=== PATIENT | female | born 1995 | race Caucasian/White ===

== ENCOUNTER → 2019-04-07 09:57 | Outpatient (CLI) | payer SELFPAY ==
[2019-04-07 08:54] VITALS: BMI 31.8
[2019-04-07 10:17] LABS: Absolute Lymphocyte Count 1.24 X10^3/uL (0.83-4.51); Absolute Neutrophil Count 4.7 X10^3/uL (2.0-7.7); Basophil# 0.02 X10^3/uL; Basophil% 0.3 % (0-1); Eosinophil# 0.03 X10^3/uL; Eosinophils% 0.5 % (0-5); Hematocrit 40.5 % (37-47); Hemoglobin 14.1 g/dL (12.0-15.0); Lymphocyte # 1.24 X10^3/ul (4.0); Lymphocyte % 19.3 % (19-41); Mean Corp Hgb Conc 34.8 g/dL (32-36); Mean Corpuscular Hgb 33.5 pg (27.0-32.0); Mean Corpuscular Volume 96.2 fL (81-99); Mean Platelet Vol. 9.7 fl (6.2-12.0); Monocyte% 6.2 % (0-10); NRBC Flagged by Analyzer 0 % (0-5); Neutrophil # 4.72 X10^3/uL (2.7-7.7); Neutrophil % 73.4 % (47-70); Platelet Count 196 K/mm3 (150-450); RBC Distribution Width CV 12.4 % (11.6-14.6); RBC Distribution Width SD 43.3 fl (35.1-43.9); Red Blood Count 4.21 M/mm3 (4.2-5.4); White Blood Count 6.4 K/mm3 (4.4-11.0)
[2019-04-07 11:39] LABS: HIV - WCH Non-Reactive (Nonreactive); Hepatitis B Surface Antibody Non-Reactive; Hepatitis B Surface Antigen Non-Reactive (Nonreactive); Rubella IgG 36.3 IU/mL
[2019-04-07 15:45] LABS: Chlamydia Trachomatis by PCR Negative (Negative); Neisserai gonorrhoeae by PCR Negative (Negative); Probe Check PASS; Sample Adequacy Control PASS; Specimen Processing Control PASS
[2019-04-11 04:45] LABS: Rapid Plasmin Reagin (RPR) NONREACTIVE (NONREACTIVE)
== END ==
PROVIDERS: PCP Physician Assistant; Referring Provider Obstetrics & Gynecology; Visit Provider Obstetrics & Gynecology
DX: Z34.90 Encounter for supervision of normal pregnancy, unspecified, unspecified trimester (principal)
CPT/HCPCS: 36415; 85025; 86592; 86703; 86706; 86762; 86850; 86900; 87086; 87088; 87340; 87491; 87591

== ENCOUNTER → 2019-08-21 11:13 | Outpatient (CLI) | payer SELFPAY ==
[2019-08-21 10:24] VITALS: BMI 27.6
[2019-08-21 12:42] LABS: Absolute Lymphocyte Count 1.06 X10^3/uL (0.83-4.51); Absolute Neutrophil Count 6.3 X10^3/uL (2.0-7.7); Basophil# 0.02 X10^3/uL; Basophil% 0.3 % (0-1); Eosinophil# 0.06 X10^3/uL; Eosinophils% 0.8 % (0-5); Hematocrit 39.9 % (37-47); Hemoglobin 13.4 g/dL (12.0-15.0); Lymphocyte # 1.06 X10^3/ul (4.0); Lymphocyte % 13.5 % (19-41); Mean Corp Hgb Conc 33.6 g/dL (32-36); Mean Corpuscular Hgb 33.8 pg (27.0-32.0); Mean Corpuscular Volume 100.5 fL (81-99); Mean Platelet Vol. 10.1 fl (6.2-12.0); Monocyte# 0.35 X10^3/uL; Monocyte% 4.5 % (0-10); NRBC Flagged by Analyzer 0 % (0-5); Neutrophil # 6.32 X10^3/uL (2.7-7.7); Neutrophil % 80.4 % (47-70); Platelet Count 220 K/mm3 (150-450); RBC Distribution Width CV 12.7 % (11.6-14.6); RBC Distribution Width SD 46.9 fl (35.1-43.9); Red Blood Count 3.97 M/mm3 (4.2-5.4); White Blood Count 7.9 K/mm3 (4.4-11.0)
[2019-08-21 13:22] LABS: Glucose Challenge Gest 1H 50g 88 mg/dL (70-140)
== END ==
PROVIDERS: Family Provider Physician Assistant; PCP Physician Assistant; Referring Provider Obstetrics & Gynecology; Visit Provider Obstetrics & Gynecology
DX: O26.891 Other specified pregnancy related conditions, first trimester (principal); Z3A.00 Weeks of gestation of pregnancy not specified
CPT/HCPCS: 36415; 82950; 85025; 86850; 86900; 86901

== ENCOUNTER → 2019-10-24 | Outpatient (CLI) | payer SELFPAY ==
[2019-10-24 10:07] VITALS: BMI 31.8
== END | disposition home or self-care (01) ==
LOC: LABSPEC 11:57
PROVIDERS: PCP Physician Assistant; Referring Provider Obstetrics & Gynecology; Visit Provider Obstetrics & Gynecology
DX: Z34.93 Encounter for supervision of normal pregnancy, unspecified, third trimester (principal)
CPT/HCPCS: 87077; 87081; 87186

== ENCOUNTER 2019-10-27 17:40 | Inpatient (IN) | payer SELFPAY ==
[2019-10-27 15:25] VITALS: BMI 31.8
[2019-10-27 15:57] VITALS: BMI 32.4
[2019-10-27 17:24] VITALS: BMI 32.4
[2019-10-27] MEDS: Lactated Ringers 1,000 ML 500 ML IV (17:50)
[2019-10-27 17:58] LABS: Absolute Lymphocyte Count 1.22 X10^3/uL (0.83-4.51); Basophil# 0.01 X10^3/uL; Basophil% 0.1 % (0-1); Eosinophil# 0.06 X10^3/uL; Eosinophils% 0.6 % (0-5); Hematocrit 40.4 % (37-47); Hemoglobin 13.9 g/dL (12.0-15.0); Lymphocyte # 1.22 X10^3/ul (4.0); Lymphocyte % 12.3 % (19-41); Mean Corp Hgb Conc 34.4 g/dL (32-36); Mean Corpuscular Hgb 33.9 pg (27.0-32.0); Mean Corpuscular Volume 98.5 fL (81-99); Mean Platelet Vol. 10.1 fl (6.2-12.0); Monocyte# 0.55 X10^3/uL; Monocyte% 5.6 % (0-10); NRBC Flagged by Analyzer 0 % (0-5); Neutrophil % 80.9 % (47-70); Platelet Count 205 K/mm3 (150-450); RBC Distribution Width SD 46.5 fl (35.1-43.9); White Blood Count 9.9 K/mm3 (4.4-11.0)
[2019-10-27] MEDS: fentaNYL-bupivacaine (epidural) 100 ML BAG EPIDURAL (20:25)
[2019-10-27] MEDS: Lactated Ringers 1,000 ML 200 ML IV (20:55)
[2019-10-27] MEDS: Acetaminophen 325 MG Tablet PO (20:57)
[2019-10-28] VITALS (8 sets, daily range): BP systolic 112–155; BP diastolic 61–74; PULSE 78–99; RESP 14–18; TEMP 36.2–36.7; O2SAT 98–99
[2019-10-28] MEDS: Oxytocin 30 units/NS 500 ml 30 UNITS/500 ML IV.SOLN 334 UNITS IV (00:14)
--- NOTE | 2019-10-28 00:43 | HP.PCM_ITS ---
- Problem List (1) Active labor at term Status: Acute (2) Rh negative status during Status: Acute Qualifiers: Comment: rhogam given at 28weeks (3) History of prior with short cervix, currently Status: Acute Comment: No intervention. No PTL. s/p mfm consult early and nl cervical lengths (4) Status: Acute Qualifiers: Comment: carrier, ntd, and genetic screening declined; normal anatomy (5) Supervision of other normal , antepartum Status: Acute Comment: PRR OCTAVIO 11/13/19 boy PC:[place] Spouse:Neymar History Date of Admission: 05/16/17 Final OCTAVIO: 11/13/19 Final OCTAVIO Source: US <20 weeks Gestational age: 37 Weeks and 5 Days History of this : This is a 24 year-old, at 37 weeks gestational age in active labor 5 cm dilated. Patient denies any vaginal bleeding or loss of fluid admits good movement. Patient had a complicated by cervical insufficiency but is made it to term spontaneously. Surgical History: Surgical History (Last Reviewed 10/27/19 @ 15:04 by Debra Nesbitt) History of wisdom tooth extraction, class II edentulism K08.492 Allergies No Known Allergies Allergy (Verified 10/27/19 15:05) Home Medications: Home Medications Vits [Prenatabs FA ] 1 tab PO DAILY 05/16/17 Smoking Status: Never smoker Alcohol: None Number of Fetus(es): 1 NST - FHR Rate Baby A Baseline: 130 Variability:: Moderate Accelerations:: 15 x 15 Decelerations:: None NST Reactive:: Yes FHR Category:: Category I Uterine Activity:: q 2 History Past Pregnancies: Past Pregnancies Pregancy History 2 Elective abortions Hx Para 1 Spontaneous abortions Hx # Term Pregnancies Ectopic pregnancies Hx # Pregnancies Multiple births # of living children Past Pregnancies Del. Date Name GA/Weeks Outcome Route Bth Weight Gen Labor Lgth Anesthesia Del Locatn Provider FOB Unknown 2016 [place] 38 live - full term 7lbs 1oz Male 9 hours epidural WC Felix Labs: Mom's Labs & Results 10/27/19 10/27/19 10/27/19 17:50 17:50 17:50 WBC 9.9 Corrected WBC ASSISTANT GENERAL MANAGER RBC 4.10 L Hgb 13.9 Hct 40.4 MCV 98.5 MCH 33.9 H MCHC 34.4 RDW Std Deviation 46.5 H RDW Coeff of Lidia 13.0 Plt Count 205 MPV 10.1 Immature Gran % (Auto) 0.500 Neut % (Auto) 80.9 H Lymph % (Auto) 12.3 L [place] % (Auto) 5.6 Eos % (Auto) 0.6 Baso % (Auto) 0.1 Absolute Neuts (auto) 8.0 H Absolute Lymphs (auto) 1.22 Total Counted ASSISTANT GENERAL MANAGER Neutrophils % (Manual) ASSISTANT GENERAL MANAGER Band Neutrophils % ASSISTANT GENERAL MANAGER Lymphocytes % (Manual) ASSISTANT GENERAL MANAGER Monocytes % (Manual) ASSISTANT GENERAL MANAGER Eosinophils % (Manual) ASSISTANT GENERAL MANAGER Basophils % (Manual) ASSISTANT GENERAL MANAGER Metamyelocytes % ASSISTANT GENERAL MANAGER Myelocytes % ASSISTANT GENERAL MANAGER Promyelocytes % ASSISTANT GENERAL MANAGER Blast Cells % ASSISTANT GENERAL MANAGER Plasma Cell % (Manual) ASSISTANT GENERAL MANAGER Other Cells % ASSISTANT GENERAL MANAGER Nucleated RBC % 0 Nucleated RBCs/100 WBC ASSISTANT GENERAL MANAGER Differential Comment ASSISTANT GENERAL MANAGER Diff Path Review ASSISTANT GENERAL MANAGER Hypersegmented Neuts ASSISTANT GENERAL MANAGER Atypical Lymphocytes ASSISTANT GENERAL MANAGER Reactive Lymphocytes ASSISTANT GENERAL MANAGER Smudge Cells ASSISTANT GENERAL MANAGER Toxic Granulation ASSISTANT GENERAL MANAGER Toxic Vacuolation ASSISTANT GENERAL MANAGER Dohle Bodies ASSISTANT GENERAL MANAGER Gera Rods ASSISTANT GENERAL MANAGER Platelet Estimate ASSISTANT GENERAL MANAGER Plt Morphology Comment ASSISTANT GENERAL MANAGER RBC Morphology ASSISTANT GENERAL MANAGER Polychromasia ASSISTANT GENERAL MANAGER Hypochromasia ASSISTANT GENERAL MANAGER Poikilocytosis ASSISTANT GENERAL MANAGER Basophilic Stippling ASSISTANT GENERAL MANAGER Anisocytosis ASSISTANT GENERAL MANAGER Microcytosis ASSISTANT GENERAL MANAGER Macrocytosis ASSISTANT GENERAL MANAGER Spherocytes ASSISTANT GENERAL MANAGER Sickle Cells ASSISTANT GENERAL MANAGER Target Cells ASSISTANT GENERAL MANAGER Tear Drop Cells ASSISTANT GENERAL MANAGER Ovalocytes ASSISTANT GENERAL MANAGER Stomatocytes ASSISTANT GENERAL MANAGER [place] Bodies ASSISTANT GENERAL MANAGER [place] Cells ASSISTANT GENERAL MANAGER Bite Cells ASSISTANT GENERAL MANAGER Crenated Cell ASSISTANT GENERAL MANAGER Acanthocytes (Spur) ASSISTANT GENERAL MANAGER Rouleaux ASSISTANT GENERAL MANAGER Schistocytes ASSISTANT GENERAL MANAGER Blood Type A NEGATIVE Antibody Screen TNP NEGATIVE Course Did the patient receive Yes care? Labs Blood Type: A RH: NEGATIVE RPR/VDRL/Syphilis Nonreactive Rubella status Immune HbSAg Negative Date Done: 04/07/19 Chlamydia Negative Gonorrhea Negative HIV/AIDS Non-Reactive Group B Strep: Negative Current Obstetrical History Gestational Diabetes No Incompetent Cervix No Infertility No IUGR No Macrosomia No Hypertension/Pre-eclampsia No Placenta Previa/Abruption No PTL/PROM No Uterine anomaly No Oligohydramnios No Polyhydramnios No Multiple gestation No Past Medical History Asthma No Diabetes No Hypertension No Heart disease No Mitral valve prolapse No Neurologic/Seizure disorder/ No Migraines Kidney disease No Liver disease No Varicosities No Clotting disorders/Hx of DVT No Thyroid Dysfunction No Other medical diseases No Psychiatric disorders No Major trauma No Abnormal PAP smear No Sleep apnea No Mammogram in the last 2 years No Social History Marital Status: Alleged father Neymar Hyde Hx Smoking No Smoking Status Never smoker How long have you used no substances (years)? Expected Infant Delivery Method: Spontaneous Vaginal Review of Systems Constitutional: Denies: Fever, Malaise Eyes: Denies: Blurred vision, Vision Change HEENT: Denies: Head Aches, Visual Changes Cardiovascular: Denies: Chest Pain, Palpitations Respiratory: Denies: Cough, Shortness of Breath, Wheezing Gastrointestinal: Denies: Abdominal Pain, Diarrhea, Nausea, Vomiting Genitourinary: Denies: Dysuria, Hematuria Musculoskeletal: Denies: Joint Pain, Muscle pain Skin: Denies: Lesions, Rash Neurological: Denies: Blurred vision, Focal weakness, Headaches Psychiatric: Denies: Anxiety, Depression Endocrine: Denies: Heat/ Cold Intolerance Hematologic/ Lymphatic: Denies: Easy Bruising, Easy Bleeding Physical Exam General: Alert, Cooperative, No apparent distress HEENT: Atraumatic, Normocephalic. Negative for: Thyromegaly, Lymphadenopathy Cardiovascular: Regular rate Lungs: Normal air movement Abdomen: Soft, Non Tender, Gravid Neurological: Deep Tendon Reflexes 2+/4 and Symmetrical, Neuro grossly intact. Negative for: Clonus CENTER RECEPTIONIST: Normal external genitalia. Negative for: Vulvar lesions Estimated gestational size: Appropriate for gestational size Presentation: Cephalic Cervix Dilation (cm): 5 Station: 0 Effacement (%): 80 Assessment/Plan All Active Problems (Last Reviewed 10/27/19 @ 15:04 by Debra Nesbitt) Active labor at term (Acute) Rh negative status during (Acute) History of prior with short cervix, currently (Acute) (Acute) Supervision of other normal , antepartum (Acute) This is a 24 year-old, at 37 weeks gestational age presents IAL Patient presents IAL, plan expectant management for , Pitocin/AROM if needed. Pain management: Plans epidural. GBS negative. Management of any complications: None I have reviewed the [facility] and made any clinically relevant updates.
--- NOTE | 2019-10-28 00:45 | OP.PCM_ITS ---
Problem List (1) Active labor at term Status: Acute (2) Rh negative status during Status: Acute Qualifiers: Comment: rhogam given at 28weeks (3) History of prior with short cervix, currently Status: Acute Comment: No intervention. No PTL. s/p mfm consult early and nl cervical lengths (4) Status: Acute Qualifiers: Comment: carrier, ntd, and genetic screening declined; normal anatomy (5) Supervision of other normal , antepartum Status: Acute Comment: PRR OCTAVIO 11/13/19 boy PC:[place] Spouse:Neymar Vaginal Delivery Maternal Presentation: Active Labor ial 37 weeks Method of Induction: Pitocin Amniotic Membrane Rupture Type: Artificial Amniotic Fluid Description: Clear Final OCTAVIO: 11/13/19 Gestational age: 37 Weeks and 5 Days Date of Procedure: 10/27/19 Pre-Operative Diagnosis: ial Post-Operative Diagnosis: same Surgery/ Procedure Performed: Spontaneous Vaginal Delivery Type of Anesthesia: Epidural Description of Procedure: Patient began pushing and delivered the head in the [SY] presentation. The head was delivered atraumatically. The anterior and posterior shoulders delivered without complication followed by the rest of the and the was placed on the maternal abdomen. Delayed cord clamping was employed for approximately 60 seconds. Cord was clamped and cut and gentle traction was applied to the cord and the placenta delivered spontaneously immediately following it was noted to be intact with three-vessel cord. The perineum and vagina were inspected and noted to have a small second-degree perineal laceration that was repaired in the usual fashion with 3-0 Vicryl Rapide. EBL was 300 cc. Patient and tolerated delivery well. Presentation: SY Placental Delivery Description: Spontaneous Placenta Disposition: [facility] Cord Vessel Description: 3 Vessels Cord Entanglement: None Estimated Blood Loss: 300 Infant A gender: Male Episiotomy Description: None Laceration: Perineal Extension/lac, 2nd degree Medications given after delivery: IV Pitocin Complications: None Multi Select Codes - Urinary/Genital Urinary/Genital CPT Codes: 58840 Vaginal Delivery [facility]
[2019-10-28] MEDS: Naproxen 250 MG Tablet 500 MG PO ×2 (04:15→12:51)
--- NOTE | 2019-10-28 08:47 | PN.OBGYN_ITS ---
Patient Problems: Active and Suspected Problems (Last Reviewed 10/27/19 @ 15:04 by Debra Nesbitt) Active labor at term (Acute) Subjective: Doing well, no complaints.Pain controlled. Denies CP, SOB, N,V. Ambulating well, tolerating po. Lochia moderate, going well. - Physical Exam Vitals/I&O's: Vital Signs Temp Pulse Resp BP 98.1 F 99 18 115/70 10/28/19 04:00 10/28/19 04:00 10/28/19 04:00 10/28/19 04:00 Weight: 189 lb Body Mass Index (BMI) 32.4 Intake and Output for Last 24 Hours 10/26/19 10/27/19 10/28/19 23:59 23:59 23:59 Intake Total 1000.00 / 1000.00 1166.67 / 1166.67 Output Total 1500 / 1500 Balance 1000.00 / 1000.00 -333.33 / -333.33 General: Alert, Oriented x3 Abdomen: Soft, Non Tender, - - FF below U Laboratory Results 10/27/19 17:50: WBC 9.9, Corrected WBC CIRCULATION TENDER, RBC 4.10 L, Hgb 13.9, Hct 40.4, MCV 98.5, MCH 33.9 H, MCHC 34.4, RDW Std Deviation 46.5 H, RDW Coeff of Lidia 13.0, Plt Count 205, MPV 10.1, Immature Gran % (Auto) 0.500, Neut % (Auto) 80.9 H, Lymph % (Auto) 12.3 L, [place] % (Auto) 5.6, Eos % (Auto) 0.6, Baso % (Auto) 0.1, Absolute Neuts (auto) 8.0 H, Absolute Lymphs (auto) 1.22, Total Counted CIRCULATION TENDER, Neutrophils % (Manual) CIRCULATION TENDER, Band Neutrophils % CIRCULATION TENDER, Lymphocytes % (Manual) CIRCULATION TENDER, Monocytes % (Manual) CIRCULATION TENDER, Eosinophils % (Manual) CIRCULATION TENDER, Basophils % (Manual) CIRCULATION TENDER, Metamyelocytes % CIRCULATION TENDER, Myelocytes % CIRCULATION TENDER, Promyelocytes % CIRCULATION TENDER, Blast Cells % CIRCULATION TENDER, Plasma Cell % (Manual) CIRCULATION TENDER, Other Cells % CIRCULATION TENDER, Nucleated RBC % 0, Nucleated RBCs/100 WBC CIRCULATION TENDER, Differential Comment CIRCULATION TENDER, Diff Path Review CIRCULATION TENDER, Hypersegmented Neuts CIRCULATION TENDER, Atypical Lymphocytes CIRCULATION TENDER, Reactive Lymphocytes CIRCULATION TENDER, Smudge Cells CIRCULATION TENDER, Toxic Granulation CIRCULATION TENDER, Toxic Vacuolation CIRCULATION TENDER, Dohle Bodies CIRCULATION TENDER, Gera Rods CIRCULATION TENDER, Platelet Estimate CIRCULATION TENDER, Plt Morphology Comment CIRCULATION TENDER, RBC Morphology CIRCULATION TENDER, Polychromasia CIRCULATION TENDER, Hypochromasia CIRCULATION TENDER, Poikilocytosis CIRCULATION TENDER, Basophilic Stippling CIRCULATION TENDER, Anisocytosis CIRCULATION TENDER, Microcytosis CIRCULATION TENDER, Macrocytosis CIRCULATION TENDER, Spherocytes CIRCULATION TENDER, Sickle Cells CIRCULATION TENDER, Target Cells CIRCULATION TENDER, Tear Drop Cells CIRCULATION TENDER, Ovalocytes CIRCULATION TENDER, Stomatocytes CIRCULATION TENDER, Khanna- [place] Bodies CIRCULATION TENDER, [place] Cells CIRCULATION TENDER, Bite Cells CIRCULATION TENDER, Crenated Cell CIRCULATION TENDER, Acanthocytes ( Spur) CIRCULATION TENDER, Rouleaux CIRCULATION TENDER, Schistocytes CIRCULATION TENDER 10/27/19 17:50: Blood Type A NEGATIVE, Antibody Screen TNP 10/27/19 17:50: Antibody Screen NEGATIVE Current Medications Acetaminophen (Tylenol) 1,000 mg PO Q8H PRN PRN PRN Reason: Pain Score 1-3/10 Bisacodyl (Dulcolax) 10 mg RECTAL UD PRN PRN Reason: If no BM Dibucaine (Dibucaine) 1 applic TOPICAL TID PRN PRN; Protocol PRN Reason: Discomfort Hydrocortisone (Hytone) 1 applic TOPICAL TID PRN PRN; Protocol PRN Reason: Discomfort Methylergonovine Maleate (Methergine) 0.2 mg IM X1 PRN PRN Reason: Excess bleeding/uterine atony Naproxen (Naprosyn) 500 mg PO Q8H PRN PRN PRN Reason: Pain Score 1-3/10 Last Admin: 10/28/19 04:15 Dose: 500 mg Documented by: Ondansetron HCl (Zofran) 4 mg IV Q4H PRN PRN PRN Reason: Nausea Oxycodone HCl (Oxyir) 5 - 10 mg PO Q4H PRN PRN PRN Reason: Pain Score 4-10/10 Multivit/Folic Acid/Iron (Prenatabs Fa) 1 tablet PO DAILY EB Senna/Docusate Sodium (Senokot-S, Anastasia-Colace) 1 - 2 tablet PO DAILY PRN PRN PRN Reason: Constipation Simethicone (Mylicon) 80 mg PO PCHS PRN PRN Reason: Indigestion/Stomach pain Sodium Chloride () 5 - 15 ml IV UD PRN PRN Reason: SALINE FLUSH Medical Necessity - Tobacco Use Smoking Status: Never smoker Assessment/Plan All Active Problems (Last Reviewed 10/27/19 @ 15:04 by Debra Nesbitt) Active labor at term (Acute) Rh negative status during (Acute) History of prior with short cervix, currently (Acute) (Acute) Supervision of other normal , antepartum (Acute) s/p PPD # 1 1. routine post delivery care 2. breast feeding- support given 3. rh negative 4. rubella immune
[2019-10-28] MEDS: Acetaminophen 500 MG Tablet 1000 MG PO ×2 (08:51→17:20)
[2019-10-28] MEDS: Senna/Docusate Sodium 1 Tablet PO (21:40)
[2019-10-29 01:23] VITALS: BP 108/63; PULSE 72
[2019-10-29 01:30] VITALS: BP 108/63; PULSE 75; RESP 16; TEMP 36.6; O2SAT 98
[2019-10-29] MEDS: Acetaminophen 500 MG Tablet 1000 MG PO (05:03)
[2019-10-29 07:37] VITALS: BP 117/70; PULSE 83; RESP 18; TEMP 36.2
[2019-10-29 07:38] VITALS: BP 117/70; PULSE 83
--- NOTE | 2019-10-29 07:55 | PCM.PN.OB ---
Patient Problems: Active and Suspected Problems (Last Reviewed 10/27/19 @ 15:04 by Debra Nesbitt) Active labor at term (Acute) Subjective: Doing well, no complaints.Pain controlled. Denies CP, SOB, N,V. Ambulating well, tolerating po. Lochia moderate, going well. - Physical Exam Vitals/I&O's: Vital Signs Temp Pulse Resp BP Pulse Ox 97.1 F L 83 18 117/70 98 10/29/19 07:37 10/29/19 07:37 10/29/19 07:37 10/29/19 07:37 10/29/19 01:30 Oxygen Delivery Method Room Air Weight: 189 lb Body Mass Index (BMI) 32.4 Intake and Output for Last 24 Hours 10/27/19 10/28/19 10/29/19 23:59 23:59 23:59 Intake Total 1000.00 / 1000.00 1166.67 / 1166.67 Output Total 1500 / 1500 Balance 1000.00 / 1000.00 -333.33 / -333.33 General: Oriented x3 Abdomen: Soft, Non Tender, Non-Distended, - - FF below U Current Medications Acetaminophen (Tylenol) 1,000 mg PO Q8H PRN PRN PRN Reason: Pain Score 1-3/10 Last Admin: 10/29/19 05:03 Dose: 1,000 mg Documented by: Bisacodyl (Dulcolax) 10 mg RECTAL UD PRN PRN Reason: If no BM Dibucaine (Dibucaine) 1 applic TOPICAL TID PRN PRN; Protocol PRN Reason: Discomfort Hydrocortisone (Hytone) 1 applic TOPICAL TID PRN PRN; Protocol PRN Reason: Discomfort Methylergonovine Maleate (Methergine) 0.2 mg IM X1 PRN PRN Reason: Excess bleeding/uterine atony Naproxen (Naprosyn) 500 mg PO Q8H PRN PRN PRN Reason: Pain Score 1-3/10 Last Admin: 10/28/19 12:51 Dose: 500 mg Documented by: Ondansetron HCl (Zofran) 4 mg IV Q4H PRN PRN PRN Reason: Nausea Oxycodone HCl (Oxyir) 5 - 10 mg PO Q4H PRN PRN PRN Reason: Pain Score 4-10/10 Multivit/Folic Acid/Iron (Prenatabs Fa) 1 tablet PO DAILY EB Last Admin: 10/28/19 12:52 Dose: Not Given Documented by: Senna/Docusate Sodium (Senokot-S, Anastasia-Colace) 1 - 2 tablet PO DAILY PRN PRN PRN Reason: Constipation Last Admin: 10/28/19 21:40 Dose: 2 tablet Documented by: Simethicone (Mylicon) 80 mg PO PCHS PRN PRN Reason: Indigestion/Stomach pain Sodium Chloride () 5 - 15 ml IV UD PRN PRN Reason: SALINE FLUSH Medical Necessity - Tobacco Use Smoking Status: Never smoker Assessment/Plan All Active Problems (Last Reviewed 10/27/19 @ 15:04 by Debra Nesbitt) Active labor at term (Acute) Rh negative status during (Acute) History of prior with short cervix, currently (Acute) (Acute) Supervision of other normal , antepartum (Acute) s/p PPD # 2 1. routine post delivery care 2. breast feeding- support given 3. rh negative 4. rubella immune 5. home today
--- NOTE | 2019-10-29 07:56 | DCINST_ITS ---
Additional Instructions: If you experience any of the following, contact your healthcare provider. * Bleeding that soaks a pad every hour for 2 hours * Fever 100.4 or higher * Unrelieved incision or abdominal pain * Swelling, redness, discharge or bleeding from your incision or episiotomy site * Your incision begins to separate * Problems urinating (including inability to urinate or burning while urinating). * Visual changes * Severe headache * Flu-like symptoms * Pain or redness in one of both of your breasts * Pain, warmth, tenderness or swelling in your legs, especially the calf area * Frequent nausea and vomiting * Symptoms of depression or anxiety If you experience any of the following, call 911 or go to the nearest Emergency Room. * Chest pain * Problems breathing * Seizure activity * Partial or complete paralysis of a body part, slurred speech, weakness or drooping of the face, or a sudden inability to walk or hold your balance Allergies/Adverse Reactions: Allergies No Known Allergies Allergy (Verified 10/27/19 15:05) Medications to take at Discharge Vits [Prenatabs FA ] 1 tab PO DAILY 05/16/17 Primary Care Physician: Tia Patel PA [Primary Care Provider] - Test Results: Test results from this visit will be discussed in further detail at your follow- up appointment, if applicable.
--- NOTE | 2019-10-29 07:56 | PCM.DCVAG ---
Additional Instructions: If you experience any of the following, contact your healthcare provider. Bleeding that soaks a pad every hour for 2 hours Fever 100.4 or higher Unrelieved incision or abdominal pain Swelling, redness, discharge or bleeding from your incision or episiotomy site Your incision begins to separate Problems urinating (including inability to urinate or burning while urinating). Visual changes Severe headache Flu-like symptoms Pain or redness in one of both of your breasts Pain, warmth, tenderness or swelling in your legs, especially the calf area Frequent nausea and vomiting Symptoms of depression or anxiety If you experience any of the following, call 911 or go to the nearest Emergency Room. Chest pain Problems breathing Seizure activity Partial or complete paralysis of a body part, slurred speech, weakness or drooping of the face, or a sudden inability to walk or hold your balance Allergies/Adverse Reactions: Allergies No Known Allergies Allergy (Verified 10/27/19 15:05) Medications to take at Discharge Vits [Prenatabs FA ] 1 tab PO DAILY 05/16/17 Primary Care Physician: Tia Patel PA [Primary Care Provider] - Test Results: Test results from this visit will be discussed in further detail at your follow-up appointment, if applicable.
== END 2019-10-29 10:50 | disposition home or self-care (01) | DRG 807 ==
LOC: WPOUT 18:11 → WP 18:11
PROVIDERS: Admitting Provider Obstetrics & Gynecology; PCP Physician Assistant; Referring Provider Obstetrics & Gynecology; Visit Provider Obstetrics & Gynecology
DX: O36.0130 Maternal care for anti-D [Rh] antibodies, third trimester, not applicable or unspecified (principal); Z37.0 Single live birth; O70.1 Second degree perineal laceration during delivery; Z3A.37 37 weeks gestation of pregnancy; Z87.59 Personal history of other complications of pregnancy, childbirth and the puerperium
CPT/HCPCS: 59050; 85025; 86850; 86900; 86901; 99218; J7120; G0378

== ENCOUNTER → 2021-06-10 12:20 | Outpatient (CLI) | payer SELFPAY ==
[2021-06-10 13:02] LABS: Absolute Lymphocyte Count 1.13 X10^3/uL (0.83-4.51); Absolute Neutrophil Count 4.4 X10^3/uL (2.0-7.7); Basophil# 0.02 X10^3/uL; Basophil% 0.3 % (0-1); Eosinophil# 0.07 X10^3/uL; Eosinophils% 1.2 % (0-5); Hematocrit 38.6 % (37-47); Hemoglobin 13.1 g/dL (12.0-15.0); Lymphocyte # 1.13 X10^3/ul (0.83-4.51); Mean Corp Hgb Conc 33.9 g/dL (32-36); Mean Corpuscular Hgb 32.5 pg (27.0-32.0); Mean Corpuscular Volume 95.8 fL (81-99); Mean Platelet Vol. 9.9 fl (6.2-12.0); Monocyte# 0.35 X10^3/uL; Monocyte% 5.9 % (0-10); NRBC Flagged by Analyzer 0 % (0-5); Neutrophil # 4.36 X10^3/uL (2.7-7.7); Neutrophil % 73.4 % (47-70); Platelet Count 221 K/mm3 (150-450); RBC Distribution Width CV 12.2 % (11.6-14.6); RBC Distribution Width SD 42.5 fl (35.1-43.9); Red Blood Count 4.03 M/mm3 (4.2-5.4); White Blood Count 5.9 K/mm3 (4.4-11.0)
[2021-06-10 13:36] LABS: Rubella IgG Reactive (Nonreactive)
== END ==
PROVIDERS: PCP Physician Assistant; Referring Provider Obstetrics & Gynecology; Visit Provider Obstetrics & Gynecology
DX: Z34.90 Encounter for supervision of normal pregnancy, unspecified, unspecified trimester (principal)
CPT/HCPCS: 36415; 85025; 86762; 86850; 86900; 86901; 87086

== ENCOUNTER → 2021-08-08 14:50 | Outpatient (CLI) | payer SELFPAY ==
--- NOTE | 2021-08-08 14:56 | US_ITS ---
STUDY: FIRST TRIMESTER OBSTETRICAL ULTRASOUND REASON FOR EXAM: Female, 25 years old cervical length LMP: 04/15/2021. TECHNIQUE: Transvaginal TECHNICAL QUALITY: Adequate. PRIOR ULTRASOUND: None. FINDINGS: The cervical length measures 4.2 cm. US/Transvaginal w/Preg US IMPRESSION: The cervical length measures 4.2 cm. Electronically Signed: Danyel Ryan MD at 9:17 EST , Service support ,
== END ==
PROVIDERS: PCP Physician Assistant; Referring Provider Obstetrics & Gynecology; Visit Provider Obstetrics & Gynecology
DX: O09.299 Supervision of pregnancy with other poor reproductive or obstetric history, unspecified trimester (principal); Z3A.00 Weeks of gestation of pregnancy not specified
CPT/HCPCS: 76817

== ENCOUNTER → 2021-08-29 11:01 | Outpatient (CLI) | payer SELFPAY ==
--- NOTE | 2021-08-29 11:10 | US_ITS ---
CLINICAL HISTORY: anatomy scan 19-20 weeks, cervical length US OB Complete W/ Detail single or first gestation: 08/29/2021 11:20 AM COMPARISON EXAMS AND/OR REPORTS: 08/08/2021. IMPRESSION: A single living fetus is identified in cephalic presentation. The placenta is posterior without evidence of previa. The umbilical cord insertion into the placenta appears unremarkable. The quantity of amniotic fluid is within normal limits. No uterine or adnexal abnormality identified. heart rate at 141 bpm. The cervix is unremarkable, closed as seen on images [id number] , measures 4.55 in length. The following biometric data were obtained: MEASUREMENTS Biparietal Diameter 4.47 cm correlates with 19 weeks and 3 days Head Circumference 16.95 cm correlates with 19 weeks 4 days. Abdominal Circumference 14.15 cm correlates with 19 weeks and 3 days. Femoral Length 3.04 cm correlates with 19 weeks and 2 days. COMPOSITE AGE 19 weeks and 3 days Ultrasound OCTAVIO: 01/20/2022 AGE BY LMP 19 weeks and 3 days LMP OCTAVIO: 01/20/2022 WEIGHT ESTIMATE 295 g +/- 44 g Percentile by LMP 47.42 This examination includes a general survey of the fetus. The survey is comprised of (but not limited to)the following views where technically possible and clinically appropriate: cerebral ventricles, cerebellum, choroid plexus, cisterna magna, midline falx, cavum septi pellucidi, upper lip, four-chamber image of the heart, great vessels (and/or outflow tracts), spine, stomach (left-sided), kidneys, urinary bladder, umbilical cord insertion into the abdomen, umbilical cord vessel number, and extremities. These views were unremarkable and the situs is normal. IMPRESSION: Single live intrauterine of 19 weeks and 3 days with a heart rate of 141 bpm. Unremarkable anatomy. No acute abnormality. The cervix measures 4.55 cm. Electronically Signed: Be Cruz MD at 12:55 EST Tel , Service support , CLINICAL HISTORY: anatomy scan 19-20 weeks, cervical length US OB Complete W/ Detail single or first gestation: 08/29/2021 11:20 AM COMPARISON EXAMS AND/OR REPORTS: 08/08/2021. IMPRESSION: A single living fetus is identified in cephalic presentation. The placenta is posterior without evidence of previa. The umbilical cord insertion into the placenta appears unremarkable. The quantity of amniotic fluid is within normal limits. No uterine or adnexal abnormality identified. heart rate at 141 bpm. The cervix is unremarkable, closed as seen on images [id number] , measures 4.55 in length. The following biometric data were obtained: MEASUREMENTS Biparietal Diameter 4.47 cm correlates with 19 weeks and 3 days Head Circumference 16.95 cm correlates with 19 weeks 4 days. Abdominal Circumference 14.15 cm correlates with 19 weeks and 3 days. Femoral Length 3.04 cm correlates with 19 weeks and 2 days. COMPOSITE AGE 19 weeks and 3 days Ultrasound OCTAVIO: 01/20/2022 AGE BY LMP 19 weeks and 3 days LMP OCTAVIO: 01/20/2022 WEIGHT ESTIMATE 295 g +/- 44 g Percentile by LMP 47.42 This examination includes a general survey of the fetus. The survey is comprised of (but not limited to)the following views where technically possible and clinically appropriate: cerebral ventricles, cerebellum, choroid plexus, cisterna magna, midline falx, cavum septi pellucidi, upper lip, four-chamber image of the heart, great vessels (and/or outflow tracts), spine, stomach (left-sided), kidneys, urinary bladder, umbilical cord insertion into the abdomen, umbilical cord vessel number, and extremities. These views were unremarkable and the situs is normal. US/OB Anatomy Scan
== END ==
PROVIDERS: PCP Physician Assistant; Referring Provider Obstetrics & Gynecology; Visit Provider Obstetrics & Gynecology
DX: Z36.89 Encounter for other specified antenatal screening (principal)
CPT/HCPCS: 76805; 76817

== ENCOUNTER 2021-10-26 14:10 | Outpatient (CLI) | payer SELFPAY ==
--- NOTE | 2021-10-26 11:27 | US_ITS ---
STUDY: FIRST TRIMESTER OBSTETRICAL ULTRASOUND REASON FOR EXAM: Female, 26 years old check cervical length measurement. LMP: 04/15/2021. TECHNIQUE: Transvaginal TECHNICAL QUALITY: Adequate. PRIOR ULTRASOUND: None. FINDINGS: The cervix measures 2.9 cm. US/Transvaginal w/Preg US IMPRESSION: Cervical length measures 2.9 cm. Electronically Signed: Danyel Ryan MD at 12:25 EST ,
[2021-10-26 12:28] LABS: Absolute Lymphocyte Count 1.12 X10^3/uL (0.83-4.51); Absolute Neutrophil Count 6.3 X10^3/uL (2.0-7.7); Basophil# 0.01 X10^3/uL; Basophil% 0.1 % (0-1); Eosinophil# 0.07 X10^3/uL; Eosinophils% 0.9 % (0-5); Hematocrit 36.2 % (37-47); Hemoglobin 12.4 g/dL (12.0-15.0); Lymphocyte # 1.12 X10^3/ul (0.83-4.51); Mean Corp Hgb Conc 34.3 g/dL (32-36); Mean Corpuscular Hgb 33.4 pg (27.0-32.0); Mean Corpuscular Volume 97.6 fL (81-99); Mean Platelet Vol. 9.7 fl (6.2-12.0); Monocyte# 0.47 X10^3/uL; Monocyte% 5.9 % (0-10); NRBC Flagged by Analyzer 0 % (0-5); Neutrophil # 6.32 X10^3/uL (2.7-7.7); Neutrophil % 78.7 % (47-70); Platelet Count 229 K/mm3 (150-450); RBC Distribution Width CV 13.1 % (11.6-14.6); RBC Distribution Width SD 46.5 fl (35.1-43.9); Red Blood Count 3.71 M/mm3 (4.2-5.4)
[2021-10-26 14:21] VITALS: BMI 31.6
[2021-10-26] MEDS: Betamethasone/Betamethasone 30 MG/5 ML Vial 12 MG IM (14:50)
--- NOTE | 2021-10-26 14:50 | NURSING ---
Pt here for celestone injection, pt registered to come back in 24 hours for second injection and repeat ultrasound; VS WNL.
[2021-10-26 14:54] VITALS: BP 106/67; PULSE 85; RESP 16; TEMP 36.4
[2021-10-26 14:55] VITALS: BP 109/67; PULSE 85
--- NOTE | 2021-10-26 20:50 | OB.TRI.HP_ITS ---
HPI - General HPI Narrative KAIDEN OSWALD, is a 26 F who presents to L&D For a celestone injection only. She had a shortened cervical length noted today on ultrasound. Maternal Data Information OCTAVIO Calculator Estimated Delivery Date Method Current WG Current Estimate 01/20/22 LMP (Certain) 31w 0d Other Estimates 01/21/22 Ultrasound #1 30w 6d PFSH PFSH Home Medications vit,[id number]-vselb 1 tab PO DAILY 05/16/17 [History Last Taken 10/27/19 08:00] Allergy/AdvReac Type Severity Reaction Status Date / Time No Known Allergies Allergy Verified 11/11/21 10:10 Surgical History History of wisdom tooth extraction, class II edentulism Social History household members: family housing: house number of children: 2 current occupation: SAHM Smoking Status: Never smoker second hand exposure: No alcohol intake: never substance use type: does not use caffeine: Yes what type of physical activity do you participate in: walking seatbelt use: always do you feel safe at home: Yes additional social history: Neymar- TORI Structures History 3 Elective abortions Hx Para 2 Spontaneous abortions Hx # Term Pregnancies Ectopic pregnancies Hx # Pregnancies Multiple births # of living children 2 Past Pregnancies Del. Date Name GA/Weeks Outcome Route Bth Weight Infant Gen Labor Lgth Anesthesia Del Locatn Provider FOB Unknown 2016 [place] 38 live - full term 7lbs 1oz Male 9 hours epidural [facility] Felix 10/27/19 Ozzy 37 live - full term 7lbs 15oz Male 15 hours epidural [facility] Visit Details Expected Delivery Route/Plan Labor Preferences- CB/BF classes: no labor support person: Neymar labor intervention preferences: [] pain management options preferred: epidural cut cord/dad catch: yes : yes PP control planned: discussed discussed possible routes of delivery and associated risks: [] special requests: [] Plans Covid status: counseled regarding risk of covid in vs vaccination and declined vaccination Flu vaccine: declined Tdap vaccine: declined Rhogam: given LARC form signed: yes Problem list reviewed and updated with the most current plan of care details and appropriate orders placed. Relevant counseling for the gestational age provided. Continue routine care and follow up unless otherwise noted in visit notes/problem list details OB Flowsheet Initial Weight: 164 lb Date -?-?-?-?-?-?-?-?-?-?-?-?- EGA Weight BP Urine Prot -?-?-?-?-?-?-?-?-?-?-?-?- Glucose FHR FuHt Pres Dilation -?-?-?-?-?-?-?-?-?-?-?-?- Effaced St Visit Note 06/10/21 -?-?-?-?-?-?-?-?-?-?-?-?- 8w 0d 112/80 -?-?-?-?-?-?-?-?-?-?-?-?- 160 -?-?-?-?-?-?-?-?-?-?-?-?- SM- CRL 1.5 cm c ons with LMP 07/07/21 -?-?-?-?-?-?-?-?-?-?-?-?- 11w 6d 166 lb (+2 lb) 102/82 Negative -?-?-?-?-?-?-?-?-?-?-?-?- Negative 150 -?-?-?-?-?-?-?-?-?-?-?-?- Sm- no vb crampi ng 08/02/21 -?-?-?-?-?-?-?-?-?-?-?-?- 15w 4d 167 lb 8 oz (+3 lb 8 oz) 114/80 Negative -?-?-?-?-?-?-?-?-?-?-?-?- Negative 145 -?-?-?-?-?-?-?-?-?-?-?-?- JV- us for cL on 08/08 scheduled. no cramping or bleeding. no complaints 08/29/21 -?-?-?-?-?-?-?-?-?-?-?-?- 19w 3d 172 lb (+8 lb) 110/64 Negative -?-?-?-?-?-?-?-?-?-?-?-?- Negative 150 -?-?-?-?-?-?-?-?-?-?-?-?- SM- no vb lof go od fm no regular ctx 09/29/21 -?-?-?-?-?-?-?-?-?-?-?-?- 23w 6d 178 lb (+14 lb) 132/88 -?-?-?-?-?-?-?-?-?-?-?-?- 140 -?-?-?-?-?-?-?-?-?-?-?-?- SM- no vb lof go od fm occasional ctx 10/26/21 -?-?-?-?-?-?-?-?-?-?-?-?- 27w 5d 183 lb (+19 lb) 110/70 Trace -?-?-?-?-?-?-?-?-?-?-?-?- Negative 143 28 0 -?-?-?-?-?-?-?-?-?-?-?-?- MH-No VB, LOF. G ood FM. More CTX, irregular and cease with rest. Cx soft but closed. US for CL 10/26/21 -?-?-?-?-?-?-?-?-?-?-?-?- 27w 5d 184 lb 4.903 oz (+20 lb 4.903 oz) 109/67 -?-?-?-?-?-?-?-?-?-?-?-?- -?-?-?-?-?-?-?-?-?-?-?-?- 10/27/21 -?-?-?-?-?-?-?-?-?-?-?-?- 27w 6d 186 lb 4 oz (+22 lb 4 oz) 112/67 -?-?-?-?-?-?-?-?-?-?-?-?- -?-?-?-?-?-?-?-?-?-?-?-?- 11/04/21 -?-?-?-?-?-?-?-?-?-?-?-?- 29w 0d 182 lb 8 oz (+18 lb 8 oz) 122/76 Negative -?-?-?-?-?-?-?-?-?-?-?-?- Negative 130 0 -?-?-?-?-?-?-?-?-?-?-?-?- 50 -2 JV- rpt cl is due next week. no complaints of bleeding or LOF. she continues to have speedy zhao contractions. s/p celestone. rpt after 30 weeks. 11/11/21 -?-?-?-?-?-?-?-?-?-?-?-?- 30w 0d 184 lb 8 oz (+20 lb 8 oz) 112/72 Negative -?-?-?-?-?-?-?-?-?-?-?-?- Negative 168 31 -?-?-?-?-?-?-?-?-?-?-?-?- JV- Cx length to day is 2.88. Plan to check cervix next week digitally and as needed CL at 32 weeks. pt declines rpt dose steroids at this time. appears stable without signs of PTL 11/18/21 -?-?-?-?-?-?-?-?-?-?-?-?- 31w 0d 186 lb (+22 lb) 122/78 Negative -?-?-?-?-?-?-?-?-?-?-?-?- Negative 145 31 0.5 -?-?-?-?-?-?-?-?-?-?-?-?- 50 -2 SM- increa sed pressure this week, ctx with activity, no vb lof, now dilated. recommendation for second steroid course, continued modified bedrest. patient ot discuss with . recommend weekly visits until delivery. Assessment & Plan (1) Supervision of other normal : COMMENT: PRR (SP) OCTAVIO: 01/20/22 girl PC: Ozzy Álvarez Spouse: Neymar (2) : QUALIFIERS: Weeks of gestation: 30 weeks Qualified Code(s): Z3A.30 - 30 weeks gestation of COMMENT: declined ntd, genetic and carrier screening, dec std testing until delivery. nl anatomy (3) Rh negative status during : QUALIFIERS: Qualified Code(s): Z67.91 - Unspecified blood type, Rh negative COMMENT: RHOGAM PRN AND 28 WEEKS given 06/10/21, given 10/26/21 (4) History of prior with short cervix, currently : COMMENT: CL was 4.5 cm at CL patient declines additional evaluation. on 10/27 cL was 2.8 cm and patient received 2 doses of celestone. cx unchanged on 11/04. pt reluctant to receive any further steroid injections after 30 weeks. continue every other week cervical exams and CL exams until 33 weeks. PLAN: shortened cervix. return tomorrow for repeat dose of celestone. will discuss more in office setting as well.
== END 2021-10-26 23:59 | disposition home or self-care (01) ==
LOC: US 14:13 → WPOUT 14:15 → WP 14:15
PROVIDERS: Nurse Practitioner Women's Health; PCP Physician Assistant; Visit Provider Obstetrics & Gynecology
DX: O26.873 Cervical shortening, third trimester (principal); O26.893 Other specified pregnancy related conditions, third trimester; Z67.91 Unspecified blood type, Rh negative; Z3A.31 31 weeks gestation of pregnancy; Z87.59 Personal history of other complications of pregnancy, childbirth and the puerperium
CPT/HCPCS: 36415; 76817; 85025; 86850; 86900; 86901; 96372; 99218; G0378; J0702

== ENCOUNTER 2021-10-27 14:21 | Outpatient (CLI) | payer SELFPAY ==
--- NOTE | 2021-10-27 14:23 | US_ITS ---
STUDY: SECOND AND THIRD TRIMESTER OBSTETRICAL ULTRASOUND - LIMITED REASON FOR EXAM: Female, 26 years old. cervical length PRIOR ULTRASOUND: 2.23.22 TECHNIQUE: Transabdominal TECHNICAL QUALITY: Adequate. FINDINGS: There is a single intrauterine fetus. There is demonstrated cardiac activity with a heart rate of 133 bpm. The cervix measures cm in length: 2.8. Age by LMP: 27 weeks, 6 days. OCTAVIO by LMP: 5.20.22. US/Transvaginal w/Preg US IMPRESSION: There is a single live intrauterine with a heart rate of 133 bpm. The cervix measures cm in length: 2.8. Prior cervical length was 2.9 cm. Electronically Signed: Jack Montesinos MD at 15:55 EST Reading Location ID and State: [facility] / [place] , Service support ,
[2021-10-27 15:09] VITALS: BMI 31.9
[2021-10-27 15:31] VITALS: BP 112/67; PULSE 90; TEMP 36.6; O2SAT 100
[2021-10-27] MEDS: Betamethasone/Betamethasone 30 MG/5 ML Vial 12 MG IM (15:42)
--- NOTE | 2021-10-27 18:31 | OB.TRI.HP_ITS ---
HPI - General HPI Narrative KAIDEN OSWALD, is a 26 F who presents to L&D for celestone injection and follow up CL ultrasound only. Maternal Data Information OCTAVIO Calculator Estimated Delivery Date Method Current WG Current Estimate 01/20/22 LMP (Certain) 29w 2d Other Estimates 01/21/22 Ultrasound #1 29w 1d PFSH PFSH Home Medications vit,[id number]-[id number] 1 tab PO DAILY 05/16/17 [History Last Taken 10/27/19 08:00] Allergy/AdvReac Type Severity Reaction Status Date / Time No Known Allergies Allergy Verified 11/04/21 09:30 Surgical History History of wisdom tooth extraction, class II edentulism Social History household members: family housing: house number of children: 2 current occupation: SAHM Smoking Status: Never smoker second hand exposure: No alcohol intake: never substance use type: does not use caffeine: Yes what type of physical activity do you participate in: walking seatbelt use: always do you feel safe at home: Yes additional social history: Fernando [place] Structures History 3 Elective abortions Hx Para 2 Spontaneous abortions Hx # Term Pregnancies Ectopic pregnancies Hx # Pregnancies Multiple births # of living children 2 Past Pregnancies Del. Date Name GA/Weeks Outcome Route Bth Weight Infant Gen Labor Lgth Anesthesia Del Locatn Provider FOB Unknown 2016 [place] 38 live - full term 7lbs 1oz Male 9 hours epidural [facility] Felix 10/27/19 Ozzy 37 live - full term 7lbs 15oz Male 15 hours epidural [facility] Visit Details Expected Delivery Route/Plan Labor Preferences- CB/BF classes: no labor support person: Neymar labor intervention preferences: [] pain management options preferred: epidural cut cord/dad catch: yes : yes PP control planned: discussed discussed possible routes of delivery and associated risks: [] special requests: [] Plans Covid status: counseled regarding risk of covid in vs vaccination and declined vaccination Flu vaccine: declined Tdap vaccine: declined Rhogam: given LARC form signed: yes Problem list reviewed and updated with the most current plan of care details and appropriate orders placed. Relevant counseling for the gestational age provided. Continue routine care and follow up unless otherwise noted in visit notes/problem list details OB Flowsheet Initial Weight: 164 lb Date -?-?-?-?-?-?-?-?-?-?-?-?- EGA Weight BP Urine Prot -?-?-?-?-?-?-?-?-?-?-?-?- Glucose FHR FuHt Pres Dilation -?-?-?-?-?-?-?-?-?-?-?-?- Effaced St Visit Note 06/10/21 -?-?-?-?-?-?-?-?-?-?-?-?- 8w 0d 112/80 -?-?-?-?-?-?-?-?-?-?-?-?- 160 -?-?-?-?-?-?-?-?-?-?-?-?- SM- CRL 1.5 cm c ons with LMP 07/07/21 -?-?-?-?-?-?-?-?-?-?-?-?- 11w 6d 166 lb (+2 lb) 102/82 Negative -?-?-?-?-?-?-?-?-?-?-?-?- Negative 150 -?-?-?-?-?-?-?-?-?-?-?-?- Sm- no vb crampi ng 08/02/21 -?-?-?-?-?-?-?-?-?-?-?-?- 15w 4d 167 lb 8 oz (+3 lb 8 oz) 114/80 Negative -?-?-?-?-?-?-?-?-?-?-?-?- Negative 145 -?-?-?-?-?-?-?-?-?-?-?-?- JV- us for cL on 08/08 scheduled. no cramping or bleeding. no complaints 08/29/21 -?-?-?-?-?-?-?-?-?-?-?-?- 19w 3d 172 lb (+8 lb) 110/64 Negative -?-?-?-?-?-?-?-?-?-?-?-?- Negative 150 -?-?-?-?-?-?-?-?-?-?--?-?- SM- no vb lof go od fm no regular ctx 09/29/21 -?-?-?-?-?-?-?-?-?-?-?-?- 23w 6d 178 lb (+14 lb) 132/88 -?-?-?-?-?-?-?-?-?--?-?-?- 140 -?-?-?-?-?-?-?-?-?-?-?-?- SM- no vb lof go od fm occasional ctx 10/26/21 -?-?-?-?-?-?-?-?-?-?-?-?- 27w 5d 183 lb (+19 lb) 110/70 Trace -?-?-?-?-?-?-?-?-?-?-?-?- Negative 143 28 0 -?-?-?-?-?-?-?-?-?-?-?-?- MH-No VB, LOF. G ood FM. More CTX, irregular and cease with rest. Cx soft but closed. US for CL 10/27/21 -?-?-?-?-?-?-?-?-?-?-?-?- 27w 6d 186 lb 4 oz (+22 lb 4 oz) 112/67 -?-?-?-?--?-?-?-?-?-?-?-?- -?-?-?-?-?-?-?-?-?-?-?-?- 11/04/21 -?-?-?-?-?-?-?-?-?-?-?-?- 29w 0d 182 lb 8 oz (+18 lb 8 oz) 122/76 Negative -?-?-?-?-?-?-?-?-?-?-?-?- Negative 130 0 -?-?-?-?-?-?-?-?-?-?-?-?- 50 -2 JV- rpt cl is due next week. no complaints of bleeding or LOF. she continues to have speedy zhao contractions. s/p celestone. rpt after 30 weeks. Assessment & Plan (1) Supervision of other normal : COMMENT: PRR (SP) OCTAVIO: 01/20/22 girl PC: Ozzy Álvarez Spouse: Neymar (2) : QUALIFIERS: Weeks of gestation: 23 weeks Qualified Code(s): Z3A.23 - 23 weeks gestation of COMMENT: declined ntd, genetic and carrier screening, dec std testing until delivery. nl anatomy (3) Rh negative status during : QUALIFIERS: Qualified Code(s): Z67.91 - Unspecified blood type, Rh negative COMMENT: RHOGAM PRN AND 28 WEEKS given 06/10/21, given 10/26/21 (4) History of prior with short cervix, currently : COMMENT: CL was 4.5 cm at CL patient declines additional evaluation. on 10/27 cL was 2.8 cm and patient received 2 doses of celestone. cx unchanged on 11/04. pt reluctant to receive any further steroid injections after 30 weeks. continue every other week cervical exams and CL exams until 33 weeks. PLAN: DOS 10/26/21 .pt to return in 24 hrs for second dose of celestone. CL stable Charges/Coding Multi Select Codes Urinary/Genital Urinary/Genital CPT Codes: No Charge
--- NOTE | 2021-10-27 18:35 | OB.TRI.HP_ITS ---
HPI - General HPI Narrative KAIDEN OSWALD, is a 26 F who presents for second celestone injection Maternal Data Information OCTAVIO Calculator Estimated Delivery Date Method Current WG Current Estimate 01/20/22 LMP (Certain) 29w 2d Other Estimates 01/21/22 Ultrasound #1 29w 1d PFSH PFSH Home Medications vit,[id number]-xvarz 1 tab PO DAILY 05/16/17 [History Last Taken 10/27/19 08:00] Allergy/AdvReac Type Severity Reaction Status Date / Time No Known Allergies Allergy Verified 11/04/21 09:30 Surgical History History of wisdom tooth extraction, class II edentulism Social History household members: family housing: house number of children: 2 current occupation: [employer] Smoking Status: Never smoker second hand exposure: No alcohol intake: never substance use type: does not use caffeine: Yes what type of physical activity do you participate in: walking seatbelt use: always do you feel safe at home: Yes additional social history: Fernando [place] Structures History 3 Elective abortions Hx Para 2 Spontaneous abortions Hx # Term Pregnancies Ectopic pregnancies Hx # Pregnancies Multiple births # of living children 2 Past Pregnancies Del. Date Name GA/Weeks Outcome Route Bth Weight Gen Labor Lgth Anesthesia Del Locatn Provider FOB Unknown 2016 [place] 38 live - full term 7lbs 1oz Male 9 hours epidural [facility] Felix 10/27/19 Ozzy 37 live - full term 7lbs 15oz Male 15 hours epidural [facility] Visit Details Expected Delivery Route/Plan Labor Preferences- CB/BF classes: no labor support person: Neymar labor intervention preferences: [] pain management options preferred: epidural cut cord/dad catch: yes : yes PP control planned: discussed discussed possible routes of delivery and associated risks: [] special requests: [] Plans Covid status: counseled regarding risk of covid in vs vaccination and declined vaccination Flu vaccine: declined Tdap vaccine: declined Rhogam: given LARC form signed: yes Problem list reviewed and updated with the most current plan of care details and appropriate orders placed. Relevant counseling for the gestational age provided. Continue routine care and follow up unless otherwise noted in visit notes/problem list details OB Flowsheet Initial Weight: 164 lb Date -?-?-?-?-?-?-?-?-?-?-?-?- EGA Weight BP Urine Prot -?-?-?-?-?-?-?-?-?-?-?-?- Glucose FHR FuHt Pres Dilation -?-?-?-?-?-?-?-?-?-?-?-?- Effaced St Visit Note 06/10/21 -?-?-?-?-?--?-?-?-?-?-?-?- 8w 0d 112/80 -?-?-?-?-?-?-?-?-?-?-?-?- 160 -?-?-?-?-?-?-?-?-?-?-?-?- SM- CRL 1.5 cm c ons with LMP 07/07/21 -?-?-?-?-?-?-?-?-?-?-?-?- 11w 6d 166 lb (+2 lb) 102/82 Negative -?-?-?-?-?-?-?-?-?-?-?-?- Negative 150 -?-?-?-?-?-?-?-?-?-?-?-?- Sm- no vb crampi ng 08/02/21 -?-?-?-?-?-?-?-?-?-?-?-?- 15w 4d 167 lb 8 oz (+3 lb 8 oz) 114/80 Negative -?-?-?-?-?-?-?-?-?-?-?-?- Negative 145 -?-?-?-?-?-?-?-?-?-?-?-?- JV- us for cL on 08/08 scheduled. no cramping or bleeding. no complaints 08/29/21 -?-?-?-?-?-?-?-?-?-?-?-?- 19w 3d 172 lb (+8 lb) 110/64 Negative -?-?-?-?-?-?-?-?-?-?-?-?- Negative 150 -?-?-?-?-?-?-?-?-?-?-?-?- SM- no vb lof go od fm no regular ctx 09/29/21 -?-?-?-?-?-?-?-?-?-?-?-?- 23w 6d 178 lb (+14 lb) 132/88 -?-?-?-?-?-?-?-?-?-?-?-?- 140 -?-?-?-?-?-?-?-?-?-?-?-?- SM- no vb lof go od fm occasional ctx 10/26/21 -?-?-?-?-?-?-?-?-?-?-?-?- 27w 5d 183 lb (+19 lb) 110/70 Trace -?-?-?-?-?-?-?-?-?-?-?-?- Negative 143 28 0 -?-?-?-?-?-?-?-?-?-?-?-?- MH-No VB, LOF. G ood FM. More CTX, irregular and cease with rest. Cx soft but closed. US for CL 10/27/21 -?-?-?-?-?-?-?-?-?-?-?-?- 27w 6d 186 lb 4 oz (+22 lb 4 oz) 112/67 -?-?-?-?-?-?-?-?-?-?-?-?- -?-?-?-?-?-?-?-?-?-?-?-?- 11/04/21 -?-?-?-?-?-?-?-?-?-?-?-?- 29w 0d 182 lb 8 oz (+18 lb 8 oz) 122/76 Negative -?--?-?-?-?-?-?-?-?-?-?-?- Negative 130 0 -?-?-?-?-?-?-?-?-?-?-?-?- 50 -2 JV- rpt cl is due next week. no complaints of bleeding or LOF. she continues to have speedy zhao contractions. s/p celestone. rpt after 30 weeks. Assessment & Plan (1) Supervision of other normal : COMMENT: PRR (SP) OCTAVIO: 01/20/22 girl PC: Ozzy Álvarez Spouse: Neymar (2) : QUALIFIERS: Weeks of gestation: 23 weeks Qualified Code(s): Z3A.23 - 23 weeks gestation of COMMENT: declined ntd, genetic and carrier screening, dec std testing until delivery. nl anatomy (3) Rh negative status during : QUALIFIERS: Qualified Code(s): Z67.91 - Unspecified blood type, Rh negative COMMENT: RHOGAM PRN AND 28 WEEKS given 06/10/21, given 10/26/21 (4) History of prior with short cervix, currently : COMMENT: CL was 4.5 cm at CL patient declines additional evaluation. on 10/27 cL was 2.8 cm and patient received 2 doses of celestone. cx unchanged on 11/04. pt reluctant to receive any further steroid injections after 30 weeks. continue every other week cervical exams and CL exams until 33 weeks. PLAN: DOS 10/27/21 for second celestone injection only. pt to follow up in office this week. Charges/Coding Multi Select Codes Urinary/Genital Urinary/Genital CPT Codes: No Charge
== END 2021-10-27 23:59 | disposition home or self-care (01) ==
LOC: US 15:08 → WP 15:09
PROVIDERS: PCP Physician Assistant; Referring Provider Obstetrics & Gynecology; Visit Provider Obstetrics & Gynecology
DX: O09.292 Supervision of pregnancy with other poor reproductive or obstetric history, second trimester (principal); Z3A.23 23 weeks gestation of pregnancy
CPT/HCPCS: 76817; 96372; 99218; G0378; J0702

== ENCOUNTER 2021-11-11 08:20 | Outpatient (CLI) | payer SELFPAY ==
--- NOTE | 2021-11-11 08:22 | US_ITS ---
STUDY: FIRST TRIMESTER OBSTETRICAL ULTRASOUND REASON FOR EXAM: Female, 26 years old check cervical length LMP: 04/15/2021 TECHNIQUE: Transabdominal TECHNICAL QUALITY: Adequate. PRIOR ULTRASOUND: Comparison is made with prior study dated 10/27/2021. FINDINGS: The cervical length measures 2.9 cm. US/Transvaginal w/Preg US IMPRESSION: The cervical length measures 2.9 cm. Electronically Signed: Danyel Ryan MD at 12:47 EST ,
== END 2021-11-11 23:59 | disposition home or self-care (01) ==
PROVIDERS: PCP Physician Assistant; Referring Provider Obstetrics & Gynecology; Visit Provider Obstetrics & Gynecology
DX: O09.299 Supervision of pregnancy with other poor reproductive or obstetric history, unspecified trimester (principal); Z3A.00 Weeks of gestation of pregnancy not specified
CPT/HCPCS: 76817

== ENCOUNTER → 2021-12-22 | Outpatient (CLI) | payer SELFPAY | END | disposition home or self-care (01) | LOC: LABSPEC 12-23 06:39 | PROVIDERS: PCP Physician Assistant; Referring Provider Obstetrics & Gynecology; Visit Provider Obstetrics & Gynecology | DX: Z34.90 Encounter for supervision of normal pregnancy, unspecified, unspecified trimester (principal); Z3A.35 35 weeks gestation of pregnancy | CPT/HCPCS: 87081 ==

== ENCOUNTER 2021-12-30 03:05 | Outpatient (CLI) | payer SELFPAY ==
[2021-12-30 03:15] VITALS: BMI 33.5
[2021-12-30 03:24] VITALS: BP 117/73; PULSE 101; TEMP 36.5
--- NOTE | 2021-12-31 03:40 | OB.TRI.PN_ITS ---
Progress Notes Date of Service: 12/30/21 Progress Note: Patient presents for triage evaluation secondary to false labor FHT: 130 Moderate variability reactive no decelerations category I tracing [place]: q 2-4 Contractions Assessment and plan: false labor no cervical change Reactive NST, reassuring maternal and status patient discharged to home to follow-up as scheduled. See problem list details for additional plan information. Charges/Coding Procedures Urinary/Genital [id number]: 62507-05 non-stress test Interp
== END 2021-12-30 07:20 | disposition home or self-care (01) ==
LOC: WPOUT 03:09 → WP 03:09
PROVIDERS: PCP Physician Assistant; Visit Provider Obstetrics & Gynecology
DX: O47.9 False labor, unspecified (principal)
CPT/HCPCS: 59025; 59050; 99218; G0378

== ENCOUNTER 2022-01-16 02:25 | Inpatient (IN) | payer SELFPAY ==
[2022-01-16] VITALS (14 sets, daily range): BP systolic 102–130; BP diastolic 58–79; PULSE 64–93; RESP 14–16; TEMP 36.3–37.4; O2SAT 98–99; BMI 32.2
--- NOTE | 2022-01-16 02:43 | HP.PCM.OB_ITS ---
HPI - General General Date of Admission: 01/16/22 HPI Narrative KAIDEN OSWALD, is a 26 F who presents IAL and delivers precipitously. contractions began an hour earlier and water broke 50 minutes earlier Maternal Data Information OCTAVIO Calculator Estimated Delivery Date Method Current WG Current Estimate 01/20/22 LMP (Certain) 39w 3d Other Estimates 01/21/22 Ultrasound #1 39w 2d PFSH PFSH Home Medications vit,[id number] 1 tab PO DAILY 05/16/17 [History Last Taken 12/29/21 08:00] Allergy/AdvReac Type Severity Reaction Status Date / Time No Known Allergies Allergy Verified 01/13/22 09:55 Surgical History History of wisdom tooth extraction, class II edentulism Social History household members: family housing: house number of children: 2 current occupation: SAHM Smoking Status: Never smoker second hand exposure: No alcohol intake: never substance use type: does not use caffeine: Yes what type of physical activity do you participate in: walking seatbelt use: always do you feel safe at home: Yes additional social history: Neymar- TORI Structures History 3 Elective abortions Hx Para 2 Spontaneous abortions Hx # Term Pregnancies Ectopic pregnancies Hx # Pregnancies Multiple births # of living children 2 Past Pregnancies Del. Date Name GA/Weeks Outcome Route Bth Weight Gen Labor Lgth Anesthesia Del Locatn Provider FOB Unknown 2016 [place] 38 live - full term 7lbs 1oz Male [address] [facility] Felix 10/27/19 Ozzy 37 live - full term 7lbs 15oz Male [address] [facility] MARCELLUS Visit Details Expected Delivery Route/Plan Labor Preferences- CB/BF classes: no labor support person: Neymar labor intervention preferences: [] pain management options preferred: epidural cut cord/dad catch: yes : yes PP control planned: discussed discussed possible routes of delivery and associated risks: [] special requests: [] Plans Covid status: counseled regarding risk of covid in vs vaccination and declined vaccination Flu vaccine: declined Tdap vaccine: declined Rhogam: given LARC form signed: yes Problem list reviewed and updated with the most current plan of care details and appropriate orders placed. Relevant counseling for the gestational age provided. Continue routine care and follow up unless otherwise noted in visit notes/problem list details OB Flowsheet Initial Weight: 164 lb Date -?-?-?-?-?-?-?-?-?-?-?-?- EGA Weight BP Urine Prot -?-?-?-?-?-?-?-?-?-?-?-?- Glucose FHR FuHt Pres Dilation -?-?--?-?-?-?-?-?-?-?-?-?- Effaced St Visit Note 06/10/21 -?-?-?-?-?-?-?-?-?-?-?-?- 8w 0d 112/80 -?-?-?-?-?-?-?-?-?-?-?-?- 160 -?-?-?-?-?-?-?-?-?-?-?-?- SM- CRL 1.5 cm c ons with LMP 07/07/21 -?-?-?-?-?-?-?-?-?-?-?-?- 11w 6d 166 lb (+2 lb) 102/82 Negative -?-?-?-?-?-?-?-?-?-?-?-?- Negative 150 -?-?-?-?-?-?-?-?-?-?-?-?- Sm- no vb crampi ng 08/02/21 -?-?-?-?-?-?-?-?-?-?-?-?- 15w 4d 167 lb 8 oz (+3 lb 8 oz) 114/80 Negative -?-?-?-?-?-?-?-?-?-?-?-?- Negative 145 -?-?-?-?-?-?-?-?-?-?-?-?- JV- us for cL on 08/08 scheduled. no cramping or bleeding. no complaints 08/29/21 -?-?-?-?-?-?-?-?-?-?-?-?- 19w 3d 172 lb (+8 lb) 110/64 Negative -?-?-?-?-?-?-?-?-?-?-?-?- Negative 150 -?-?-?-?-?-?-?-?-?-?-?-?- SM- no vb lof go od fm no regular ctx 09/29/21 -?-?-?-?-?-?-?-?-?-?-?-?- 23w 6d 178 lb (+14 lb) 132/88 -?-?-?-?-?-?-?-?-?-?-?-?- 140 -?-?-?-?-?-?-?-?-?-?-?-?- SM- no vb lof go od fm occasional ctx 10/26/21 -?-?-?-?-?-?-?-?-?-?-?-?- 27w 5d 183 lb (+19 lb) 110/70 Trace -?-?-?-?-?-?-?-?-?-?-?-?- Negative 143 28 0 -?-?-?-?-?-?-?-?-?-?-?-?- MH-No VB, LOF. G ood FM. More CTX, irregular and cease with rest. Cx soft but closed. US for CL 10/26/21 -?-?-?-?-?-?-?-?-?-?-?-?- 27w 5d 184 lb 4.903 oz (+20 lb 4.903 oz) 109/67 -?-?-?-?-?-?-?-?-?-?-?-?- -?-?-?-?-?-?-?-?-?-?-?-?- 10/27/21 -?-?-?-?-?-?-?-?-?-?-?-?- 27w 6d 186 lb 4 oz (+22 lb 4 oz) 112/67 -?-?-?-?-?-?-?-?-?-?-?-?- -?-?-?-?-?-?-?-?-?-?-?-?- 11/04/21 -?-?-?-?-?-?-?-?-?-?-?-?- 29w 0d 182 lb 8 oz (+18 lb 8 oz) 122/76 Negative -?-?-?-?-?-?-?-?-?-?--?-?- Negative 130 0 -?-?-?-?-?-?-?-?-?-?-?-?- 50 -2 JV- rpt cl is due next week. no complaints of bleeding or LOF. she continues to have speedy zhao contractions. s/p celestone. rpt after 30 weeks. 11/11/21 -?-?-?-?-?-?-?-?-?-?-?-?- 30w 0d 184 lb 8 oz (+20 lb 8 oz) 112/72 Negative -?-?-?-?--?-?-?-?-?-?-?-?- Negative 168 31 -?-?-?-?-?-?-?-?-?-?-?-?- JV- Cx length to day is 2.88. Plan to check cervix next week digitally and as needed CL at 32 weeks. pt declines rpt dose steroids at this time. appears stable without signs of PTL 11/18/21 -?-?-?-?-?-?-?-?-?-?-?-?- 31w 0d 186 lb (+22 lb) 122/78 Negative -?-?-?-?-?-?-?-?-?-?-?-?- Negative 145 31 0.5 -?-?-?-?-?-?-?-?-?-?-?-?- 50 -2 SM- increa sed pressure this week, ctx with activity, no vb lof, now dilated. recommendation for second steroid course, continued modified bedrest. patient ot discuss with . recommend weekly visits until delivery. 11/25/21 -?-?-?-?-?-?-?-?-?-?-?-?- 32w 0d 187 lb 6 oz (+23 lb 6 oz) 124/78 Negative -?-?-?-?-?-?-?-?-?-?-?-?- Negative 140 32 -?-?-?-?-?-?-?-?-?-?-?-?- Sm- no vb lof go od fm no regular ctx just intermittent. still declining steroids and intervention 12/02/21 -?-?-?-?-?-?-?-?-?-?-?-?- 33w 0d 189 lb (+25 lb) 104/66 -?-?-?-?-?-?-?-?-?-?-?-?- 140 33 0.5 -?-?-?-?-?-?-?-?-?-?-?-?- 50 -3 SM- no vb lof good fm more pressure this week, intermittent contractions. 12/16/21 -?-?-?-?-?-?-?-?-?-?-?-?- 35w 0d 193 lb (+29 lb) 120/80 Negative -?-?-?-?-?-?-?-?-?-?-?-?- Negative 140 35 -?-?-?-?-?-?-?-?-?-?-?-?- SM- no vb lof go od fm no regular ctx co low back pain 12/22/21 -?-?-?-?-?-?-?-?-?-?-?-?- 35w 6d 194 lb (+30 lb) 132/80 Negative -?-?-?-?-?-?-?-?-?-?-?-?- Negative 140 35 Cephalic 3 -?-?-?-?-?-?-?-?-?-?-?-?- 50 -2 SM- co [place] e contractions, no vb lof good fm gbs done 01/06/22 -?-?-?-?-?-?-?-?-?-?-?-?- 38w 0d 196 lb (+32 lb) 124/84 Negative -?-?-?-?-?-?-?-?-?-?-?-?- Negative 143 Cephalic 5 -?-?-?-?-?-?-?-?-?-?-?-?- 70 -2 JV- pt jenelle ears comfortable. She is 4-5 cm, still very posterior. sending her to walk for 2 hrs and return for re-check. 01/13/22 -?-?-?-?-?-?-?-?-?-?-?-?- 39w 0d 197 lb 2 oz (+33 lb 2 oz) 110/86 Negative -?-?-?-?-?-?-?-?-?-?-?-?- Negative 125 Cephalic 5 -?-?-?-?-?-?-?-?-?-?-?-?- 70 -2 JV- pt sti ll very comfortable. discussed augmentation and patient declines. plan for close follow up next week. 01/16/22 -?-?-?-?-?-?-?-?-?-?-?-?- 39w 3d 188 lb (+24 lb) 116/76 -?-?-?-?-?-?-?-?-?-?-?-?- -?-?-?-?-?-?-?-?-?-?-?-?- ROS Constitutional Constitutional: Reports systems reviewed and no addt'l complaints, except as documented ENT HEENT: Reports systems reviewed and no addt'l complaints, except as documented Cardiovascular Cardiovascular: Reports systems reviewed and no addt'l complaints, except as documented Respiratory/Chest Respiratory/Chest: Reports systems reviewed and no addt'l complaints, except as documented Gastrointestinal Gastrointestinal: Reports systems reviewed and no addt'l complaints, except as documented and nausea; Denies abdominal pain Genitourinary Genitourinary: Reports systems reviewed and no addt'l complaints, except as documented, contractions Details: present and frequency (regular ) and movement Details: present Musculoskeletal Musculoskeletal: Reports systems reviewed and no addt'l complaints, except as documented Integumentary Integumentary: Reports as per HPI Neurologic Neurologic: Reports systems reviewed and no addt'l complaints, except as documented Endocrine Endocrinology: Reports systems reviewed and no addt'l complaints, except as documented Vital Signs Vital Signs Vital Signs: Weight Weight: 188 lb Body Mass Index (BMI) 32.2 Physical Exam Const alert, oriented x3 and healthy appearing Constitutional Narrative: uncomfortable with contractions HEENT normocephalic and moist oral mucous membranes Head and Scalp: atraumatic Neck full ROM, no lymphadenopathy, supple and thyroid normal General: trachea midline Thyroid: thyroid normal Lymph Lymphatic: no lymphadenopathy noted Chest inspection of chest normal Resp normal respiratory effort Cardio regular rate GI normal to inspection, nondistended, normoactive bowel sounds, soft to palpation and non-tender Inspection: gravid external exam normal Bimanual Exam - Vag & Uterus: uterus non-tender Extremity normal to inspection General Extremity: Negative for edema Skin no rashes or lesions noted Neuro deep tendon reflexes 2+ bilaterally Motor Exam: strength 5/5 throughout and clonus absent Psych mental status grossly normal Labs Labs Labs: Blood Type A NEGATIVE Antibody Screen NEGATIVE Hct 36.2 % (37-47) L Hgb 12.4 g/dL (12.0-15.0) Obstetrics US Rubella IgG Antibody Reactive (Nonreactive) Hep Bs Antigen Non-Reactive (Nonreactive) HIV 1&2 Antibody Non-Reactive (Nonreactive) Glucose 1 Hr 50 gm 88 mg/dL (70-140) Rhogam given: No Assessment & Plan (1) Supervision of other normal : COMMENT: PRR (SP) OCTAVIO: 01/20/22 girl PC: Ozzy Álvarez Spouse: Neymar (2) : QUALIFIERS: Weeks of gestation: 39 weeks Qualified Code(s): Z3A.39 - 39 weeks gestation of COMMENT: declined ntd, genetic and carrier screening, dec std testing until delivery. nl anatomy. GBS neg (3) Rh negative status during : QUALIFIERS: Qualified Code(s): Z67.91 - Unspecified blood type, Rh negative COMMENT: RHOGAM PRN AND 28 WEEKS given 06/10/21, given 10/26/21 (4) History of prior with short cervix, currently : COMMENT: CL was 4.5 cm at CL patient declines additional evaluation. on 10/27 cL was 2.8 cm and patient received 2 doses of celestone. cx unchanged on 11/04. pt reluctant to receive any further steroid injections after 30 weeks. continue every other week cervical exams and CL exams until 33 weeks. (5) Vaginal delivery: COMMENT: precipitous SM 39 girl Aria PLAN: admit precipitous delivery
--- NOTE | 2022-01-16 02:47 | EX.PCM.OBRPT ---
Assessment & Plan (1) Vaginal delivery: COMMENT: precipitous SM 39 girl Aria (2) Rh negative status during : QUALIFIERS: Qualified Code(s): Z67.91 - Unspecified blood type, Rh negative COMMENT: RHOGAM PRN AND 28 WEEKS given 06/10/21, given 10/26/21 Maternal Data Information OCTAVIO Calculator Estimated Delivery Date Method Current WG Current Estimate 01/20/22 LMP (Certain) 39w 3d Other Estimates 01/21/22 Ultrasound #1 39w 2d Vaginal Delivery Operative Information Date of Procedure: 01/16/22 Pre-Operative Diagnosis: IAL precipitous delivery Post-Operative Diagnosis: same Surgery / Procedure Performed: Spontaneous Vaginal Delivery Type of Anesthesia: Local with 1% Lidocaine Special Medications: none Estimated Blood Loss: 100 Fluids Replaced: crystalloid Findings Description of Procedure: Patient presented fully dilated and was placed in a room on the bed and before she was even put on the EFM she began pushing and delivered the head in the SY presentation with the aid of the nurse. The head was delivered atraumatically. The anterior and posterior shoulders delivered without complication followed by the rest of the infant and the was placed on the maternal abdomen. Cord was clamped and cut. Dr Yoon arrived and gentle traction was applied to the cord and the placenta delivered spontaneously immediately following it was noted to be intact with three-vessel cord. The perineum and vagina were inspected and noted to have a first degree lacration, which was injected with lidocaine and repaired in the usual fashion with 3-0 rapide. EBL was 100 cc. Patient and infant tolerated delivery well. Presentation: SY Amniotic Membrane Rupture Type: Spontaneous Amniotic Fluid Description: Clear Placental Delivery Description: Spontaneous Placenta Disposition: [facility] Cord Vessel Description: 3 Vessels Cord Entanglement: None Delayed Cord Clamping: No Post Vaginal Delivery Episiotomy Description: None Laceration: Perineal Extension/lac and 1st degree Complication Complications: None Procedures Urinary/Genital [id number]: [id number] Vaginal Delivery [facility]
--- NOTE | 2022-01-16 02:51 | PCM.DC ---
Discharge Instructions Diet Discharge Diet: No restrictions Activity Discharge Activity: Return to Normal Activity, May Not Drive (while taking narcotic pain medications.) and May Shower May resume sexual activity in: 4-6 weeks Dressing / Incision Call your doctor if your incision/area has: Continuous Slow Oozing, Sudden Increased Bleeding, Increased Pain/ Swelling, Increased Redness and Foul Smelling Discharge Follow Up Care Please Follow Up With: Jessica Yoon MD When: Call [phone] to make an appointment with your doctor in 6 weeks. If you had elevated blood pressure or 4th degree laceration, you will need to be seen in 2 weeks. Test Results: Test results from this visit will be discussed in further detail at your follow-up appointment, if applicable. Discharge Plan Admission Admit Date/Time: 01/16/22 02:25 Attending Provider: Jessica Yoon Primary Care Provider: Tia Patel Discharge Orders/Prescriptions Prescriptions: No Action vit,[id number] 1 TABLET tablet 1 tab PO DAILY RF: 0 Referrals / Follow Up: Tia Patel PA [Primary Care Provider] - Disposition Disposition (needs filled in before D/C Order can be placed): Home, Self Care
[2022-01-16 03:34] LABS: Absolute Lymphocyte Count 1.25 X10^3/uL (0.83-4.51); Absolute Neutrophil Count 7.9 X10^3/uL (2.0-7.7); Basophil# 0.01 X10^3/uL; Basophil% 0.1 % (0-1); Eosinophil# 0.05 X10^3/uL; Eosinophils% 0.5 % (0-5); Hematocrit 38.3 % (37-47); Hemoglobin 12.8 g/dL (12.0-15.0); Lymphocyte # 1.25 X10^3/ul (0.83-4.51); Lymphocyte % 12.8 % (19-41); Mean Corp Hgb Conc 33.4 g/dL (32-36); Mean Corpuscular Hgb 33.3 pg (27.0-32.0); Mean Corpuscular Volume 99.7 fL (81-99); Mean Platelet Vol. 10.9 fl (6.2-12.0); Monocyte# 0.55 X10^3/uL; Monocyte% 5.6 % (0-10); NRBC Flagged by Analyzer 0 % (0-5); Neutrophil # 7.85 X10^3/uL (2.7-7.7); Neutrophil % 80.7 % (47-70); Platelet Count 218 K/mm3 (150-450); RBC Distribution Width CV 13.6 % (11.6-14.6); RBC Distribution Width SD 49.7 fl (35.1-43.9); Red Blood Count 3.84 M/mm3 (4.2-5.4); White Blood Count 9.7 K/mm3 (4.4-11.0)
[2022-01-16] MEDS: Naproxen 500 MG Tablet PO ×2 (04:17→18:27)
[2022-01-16 08:55] LABS: Chlamydia Trachomatis by PCR Negative (Negative); Neisserai gonorrhoeae by PCR Negative (Negative); Probe Check PASS; Sample Adequacy Control PASS; Specimen Processing Control PASS
[2022-01-16 09:31] LABS: Syphilis Antibodies Non-reactive
[2022-01-16 09:54] LABS: HIV - WCH Non-Reactive (Nonreactive); Hepatitis B Surface Antigen Non-Reactive (Nonreactive); Hepatitis C Antibody Non-Reactive (Nonreactive)
--- NOTE | 2022-01-16 10:47 | NURSING ---
Pt called this RN because when she got up to the BR she passed a large clot. This RN looked at clot. Clot the size of a lashawn. Pt asymptomatic, denies dizziness and lightheadedness at this time. Instructed to call this RN if passing any more clots or if she begins to feel poor. Will continue to monitor.
[2022-01-16] MEDS: Acetaminophen 500 MG Tablet 1000 MG PO (21:08)
[2022-01-16] MEDS: Senna/Docusate Sodium 1 Tablet PO (21:38)
[2022-01-17 03:07] VITALS: BP 98/55; PULSE 76; RESP 16; TEMP 36.8
[2022-01-17] MEDS: Naproxen 500 MG Tablet PO (06:07)
--- NOTE | 2022-01-17 07:49 | PCM.PN.OB ---
Subjective Subjective Patient doing well without complaints. Tolerating PO. Ambulating and voiding without difficulty. Feeding well. Denies chest pain, shortness of breath, calf pain/swelling, fevers, chills, lightheadedness. Objective Data Objective Data Vital Signs: Vital Signs Temp Pulse Resp BP Pulse Ox 98.3 F 76 16 98/55 L 99 01/17/22 03:07 01/17/22 03:07 01/17/22 03:07 01/17/22 03:07 01/16/22 12:53 Oxygen Delivery Method Room Air Weight: 188 lb Body Mass Index (BMI) 32.2 Intake & Output: Intake and Output for Last 24 Hours 01/15/22 01/16/22 01/17/22 23:59 23:59 23:59 Output Total 500 / 500 Balance -500 / -500 Lab / Micro Data Result Diagrams: 01/16/22 03:00 Labs: Laboratory Results - last 24 hr 01/16/22 03:00: Syphilis Total Ab Non-reactive 01/16/22 03:00: Hep Bs Antigen Non-Reactive, Hepatitis C Antibody Non-Reactive, HIV 1&2 Antibody Non-Reactive 01/16/22 06:30: Chlam trachomat DNA PCR Negative, N.gonorrhoeae DNA (PCR) Negative Physical Exam Const alert and oriented x3 HEENT normocephalic Eyes PERRL Neck full ROM Resp normal respiratory effort GI soft to palpation GI Narrative: FF below U Assessment & Plan (1) Vaginal delivery: COMMENT: precipitous SM 39 girl Aria (2) Rh negative status during : QUALIFIERS: Trimester: unspecified trimester Qualified Code(s): O26.899 - Other specified related conditions, unspecified trimester; Z67.91 - Unspecified blood type, Rh negative COMMENT: RHOGAM PRN AND 28 WEEKS given 06/10/21, given 10/26/21 PLAN: s/p PPD # 1 1. routine post delivery care 2. breast feeding- support given 3. rh negative 4. rubella immune 5. home today
[2022-01-17 08:13] VITALS: BP 106/65; PULSE 90; RESP 16; TEMP 36.8
== END 2022-01-17 10:40 | disposition home or self-care (01) | DRG 807 ==
PROVIDERS: Admitting Provider Obstetrics & Gynecology; PCP Physician Assistant; Visit Provider Obstetrics & Gynecology
DX: O62.3 Precipitate labor (principal); Z37.0 Single live birth; O70.0 First degree perineal laceration during delivery; Z3A.39 39 weeks gestation of pregnancy; Z67.91 Unspecified blood type, Rh negative
CPT/HCPCS: 85025; 86703; 86780; 86803; 86850; 86900; 86901; 87340; 87491; 87591

== ENCOUNTER → 2022-03-17 | Outpatient (CLI) | payer SELFPAY ==
[2022-03-21 14:03] LABS: HPV Reflexed? NOT INDICATED
== END | disposition home or self-care (01) ==
PROVIDERS: PCP Physician Assistant; Visit Provider Obstetrics & Gynecology
DX: Z12.4 Encounter for screening for malignant neoplasm of cervix (principal)
CPT/HCPCS: 88175; G0145